=== PATIENT | male | born 1950 | race Caucasian/White ===

== ENCOUNTER 2019-01-06 09:18 | Outpatient (CLI) | payer MEDICARE ==
[2019-01-06] MEDS ORDERED: ALBUTEROL SULFATE 2.5 MG/3 ML AMPUL.NEB NEB ONE (09:35)
== END 2019-01-06 09:20 ==
LOC: RT 09:18
PROVIDERS: ATTEND Family Medicine
DX: J43.1 Panlobular emphysema (principal)
CPT/HCPCS: 94060